=== PATIENT | female | born 1940 | race Caucasian/White ===

== ENCOUNTER 2020-10-23 08:12 | Outpatient (CLI) | payer MEDICARE, OTHER ==
[~2020-10-23 08:12] MED LIST: PHEN-786 PO
[2020-10-23 08:59] LABS: BASOPHILS # (AUTO) 0.1 X10'3 (0-0.2); BASOPHILS % (AUTO) 0.8 % (0-1); EOSINOPHILS # (AUTO) 0.3 X10'3 (0-0.9); EOSINOPHILS % (AUTO) 3.6 % (0-6); HEMATOCRIT 37.1 % (35.0-45.0); HEMOGLOBIN 12.8 g/dl (12.0-16.0); LYMPHOCYTES % (AUTO) 27.3 % (21-51); MEAN CORPUSCULAR HEMOGLOBIN 31.7 PG (27.0-31.0); MEAN CORPUSCULAR HGB CONC 34.5 g/dL (33.0-36.5); MEAN CORPUSCULAR VOLUME 91.8 FL (78-98); MEAN PLATELET VOLUME 8.7 FL (7.4-10.4); MONOCYTES # (AUTO) 0.7 X10'3 (0-0.9); MONOCYTES % (AUTO) 9.2 % (2-12); NEUTROPHILS # (AUTO) 4.3 X10'3 (1.8-7.7); NEUTROPHILS % (AUTO) 59.1 % (42-75); PLATELET COUNT 250 X10'3 (140-440); RED BLOOD COUNT 4.05 X10'6 (4.20-5.60); RED CELL DISTRIBUTION WIDTH 12.8 % (11.5-14.5); WHITE BLOOD COUNT 7.3 X10'3 (4.5-11.0)
[2020-10-23 09:08] LABS: PARTIAL THROMBOPLASTIN TIME 25 SECONDS (22-32)
[2020-10-23 09:09] LABS: ALANINE AMINOTRANSFERASE 23 U/L (12-78); ALBUMIN 3.9 G/DL (3.4-5.0); ALBUMIN/GLOBULIN RATIO 1.1 (1.1-1.5); ALKALINE PHOSPHATASE 81 IU/L (46-116); ANION GAP 7 (8-16); ASPARTATE AMINO TRANSFERASE 37 U/L (10-37); BILIRUBIN,TOTAL 0.5 MG/DL (0.1-1.0); BLOOD UREA NITROGEN 19 MG/DL (7-18); BUN/CREATININE RATIO 18.8 (6.6-38.0); CALCIUM 9.2 MG/DL (8.5-10.1); CHLORIDE 107 MMOL/L (99-107); CREATININE 1.01 MG/DL (0.40-0.90); GLUCOSE 94 MG/DL (70-104); POTASSIUM 4.2 MMOL/L (3.5-5.1); SODIUM 143 MMOL/L (135-145); TOTAL CARBON DIOXIDE 29.2 MMOL/L (24-32); TOTAL PROTEIN 7.4 G/DL (6.4-8.2); eGFR 53 ML/MIN
== END 2020-10-23 23:59 | disposition home or self-care (01) ==
LOC: CARD DIAG 08:12
PROVIDERS: ATTEND Internal Medicine Cardiovascular Disease
DX: I08.0 Rheumatic disorders of both mitral and aortic valves (principal); R06.02 Shortness of breath; I65.29 Occlusion and stenosis of unspecified carotid artery
CPT/HCPCS: 36415; 80053; 85025; 85610; 85730; 93308; 94010; 94727; 94729

== ENCOUNTER 2020-10-26 09:43 | Outpatient (CLI) | payer MEDICARE, OTHER ==
[2020-10-26] MEDS ORDERED: iohexol 350 MG/ML 50ML vial IV ONE (09:48)
[2020-10-26] MEDS ORDERED: iohexol 350MG/ML 100ml bottle IV ONE (09:48)
== END 2020-10-26 23:59 | disposition home or self-care (01) ==
LOC: 64 CT 09:43
PROVIDERS: ATTEND Internal Medicine Cardiovascular Disease
DX: D73.4 Cyst of spleen (principal); M16.12 Unilateral primary osteoarthritis, left hip; I44.7 Left bundle-branch block, unspecified; M47.819 Spondylosis without myelopathy or radiculopathy, site unspecified
CPT/HCPCS: 71046; 71275; 74174; Q9967; 93005; 93308

== ENCOUNTER 2020-11-21 13:21 | Day surgery (SDC) | payer MEDICARE, OTHER ==
[2020-11-21] VITALS (9 sets, daily range): BP systolic 121–142; BP diastolic 45–79
[~2020-11-21] VITALS: Ht 160 cm; Wt 70.6 kg
[2020-11-21] MEDS ORDERED: normal saline 1,000 ML IV SCH (13:40)
[2020-11-21] MEDS ORDERED: LORazepam 0.5 MG tablet PO PRN (13:40)
[2020-11-21] MEDS ORDERED: diphenhydrAMINE 25mg capsule PO PRN (13:40)
[2020-11-21] MEDS ORDERED: MAGN400C PO (14:09)
[2020-11-21] MEDS ORDERED: METO-539 PO (14:09)
[2020-11-21] MEDS ORDERED: OMEP40CA13 PO (14:09)
[2020-11-21] MEDS ORDERED: MULT-227 PO (14:09)
[2020-11-21] MEDS ORDERED: LECI400C2 PO (14:09)
[2020-11-21] MEDS ORDERED: OMEG-79 PO (14:09)
[2020-11-21] MEDS ORDERED: ASCO-321 PO (14:09)
[2020-11-21] MEDS ORDERED: EVOL420W2 SUBCUT (14:09)
[2020-11-21] MEDS ORDERED: BACL10TA PO (14:09)
[2020-11-21] MEDS ORDERED: LEVO50CA4 PO (14:09)
[2020-11-21] MEDS ORDERED: VITA80008 PO (14:09)
[2020-11-21] MEDS ORDERED: MECL-159 PO (14:09)
[2020-11-21] MEDS ORDERED: CHOL500049 PO (14:09)
[2020-11-21] MEDS ORDERED: OXYB5TAB16 PO (14:09)
[2020-11-21] MEDS ORDERED: VITA-268 PO (14:09)
[2020-11-21 14:15] LABS: BASOPHILS # (AUTO) 0.1 X10'3 (0-0.2); BASOPHILS % (AUTO) 0.8 % (0-1); EOSINOPHILS # (AUTO) 0.2 X10'3 (0-0.9); EOSINOPHILS % (AUTO) 2.3 % (0-6); HEMATOCRIT 35.6 % (35.0-45.0); LYMPHOCYTES # (AUTO) 2.2 X10'3 (1.1-4.8); LYMPHOCYTES % (AUTO) 29.5 % (21-51); MEAN CORPUSCULAR HGB CONC 33.8 g/dL (33.0-36.5); MEAN CORPUSCULAR VOLUME 91.6 FL (78-98); MEAN PLATELET VOLUME 8.6 FL (7.4-10.4); MONOCYTES # (AUTO) 0.6 X10'3 (0-0.9); MONOCYTES % (AUTO) 8.3 % (2-12); NEUTROPHILS # (AUTO) 4.4 X10'3 (1.8-7.7); NEUTROPHILS % (AUTO) 59.1 % (42-75); PLATELET COUNT 225 X10'3 (140-440); RED BLOOD COUNT 3.89 X10'6 (4.20-5.60); RED CELL DISTRIBUTION WIDTH 13.2 % (11.5-14.5); WHITE BLOOD COUNT 7.4 X10'3 (4.5-11.0)
[2020-11-21 14:27] LABS: ALBUMIN 3.7 G/DL (3.4-5.0); ANION GAP 11 (8-16); BLOOD UREA NITROGEN 15 MG/DL (7-18); CHLORIDE 105 MMOL/L (99-107); CREATININE 0.94 MG/DL (0.40-0.90); GLUCOSE 96 MG/DL (70-104); SODIUM 142 MMOL/L (135-145); TOTAL CARBON DIOXIDE 26.5 MMOL/L (24-32); eGFR 57 ML/MIN
[2020-11-21] MEDS ORDERED: nitroGLYCERIN-Tridil 50MG/D5W 250 ML IV ONE (14:29)
[2020-11-21] MEDS ORDERED: LIDOcaine 1% (10mg/ml)w/preservative injection 20ml MDV ONE (14:30)
[2020-11-21] MEDS ORDERED: iohexol 350MG/ML 100ml bottle IV ONE (14:30)
[2020-11-21] MEDS ORDERED: verapamil 2.5 mg/ml inj IV ONE (14:30)
[2020-11-21] MEDS ORDERED: midazolam 2 mg/2 ml injection ONE (14:30)
[2020-11-21] MEDS ORDERED: heparin 1,000unit/ml 10ml vial 10 ML ONE (14:30)
[2020-11-21] MEDS ORDERED: fentaNYL/PF 50MCG/1 ML 2ML syringe ONE (14:30)
[2020-11-21] MEDS ORDERED: iohexol 350 MG/ML 50ML vial IV ONE (15:11)
[2020-11-21] MEDS ORDERED: ondansetron/PF 4mg/2ml inj IV PRN (16:20)
[2020-11-21] MEDS ORDERED: HYDROcodone/acetaminophen 10/325mg tab PO PRN (16:20)
[2020-11-21] MEDS ORDERED: HYDROcodone/acetaminophen 5mg/325mg tablet PO PRN (16:20)
[2020-11-21] MEDS ORDERED: proCHLORperazine 10 MG/2 ml inj IV PRN (16:20)
[2020-11-21] MEDS ORDERED: OXAZEpam 15mg capsule PO PRN (16:20)
== END 2020-11-21 18:28 | disposition home or self-care (01) ==
LOC: SSTAY O 13:21
PROVIDERS: ATTEND Internal Medicine Interventional Cardiology
DX: I35.0 Nonrheumatic aortic (valve) stenosis (principal); I25.718 Atherosclerosis of autologous vein coronary artery bypass graft(s) with other forms of angina pectoris; I10 Essential (primary) hypertension; E78.5 Hyperlipidemia, unspecified; E03.9 Hypothyroidism, unspecified; I65.23 Occlusion and stenosis of bilateral carotid arteries; I70.208 Unspecified atherosclerosis of native arteries of extremities, other extremity; Z88.1 Allergy status to other antibiotic agents; Z88.8 Allergy status to other drugs, medicaments and biological substances; Z79.899 Other long term (current) drug therapy; Z79.82 Long term (current) use of aspirin
CPT/HCPCS: 36415; 80048; 85025; 85610; 93005; 93455; 99152; C1769; C1894; J1644; J2001; J2250; J3010; Q9967; A5120; A6258; J3490

== ENCOUNTER 2021-01-04 16:02 | Outpatient (CLI) | payer MEDICARE, OTHER ==
[~2021-01-04] VITALS: Ht 160 cm; Wt 70.6 kg
[~2021-01-04 16:02] MED LIST changes: +ASCO-321 PO; +ASPI-1265 PO; +CHOL500049 PO; +CLOP75TA34 PO; +EVOL420W2 SUBCUT; +FLAX100031 PO; +LECI400C2 PO; +LEVO50CA4 PO; +MAGN400C PO; +METO-539 PO; +NAPR-1170 PO; +OMEP40CA13 PO; +OXYB5TAB16 PO; -PHEN-786 PO; +RESERVATOL PO; +TUMERIC PO; +UBID1CAP54 PO; +VITA-268 PO; +VITA80008 PO; +[UNRECOGNIZED DRUG - OTHER]; +[UNRECOGNIZED DRUG - OTHER] PO
[2021-01-04 17:08] VITALS: BP 173/72
--- NOTE | 2021-01-04 17:09 | NUR ---
Patient was seen today for TAVR follow-up with Dr. Mills and Dr. Villanueva. [facility]. Walk test completed. Vital signs measured. Echo and EKG reviewed with patient along with current condition of patients symptoms.
== END 2021-01-04 23:59 | disposition home or self-care (01) ==
LOC: TAVR 16:02
PROVIDERS: ATTEND Internal Medicine Cardiovascular Disease
DX: Z48.812 Encounter for surgical aftercare following surgery on the circulatory system (principal); Z95.5 Presence of coronary angioplasty implant and graft

== ENCOUNTER 2021-01-26 01:13 | Emergency (ER) | payer MEDICARE, OTHER ==
[~2021-01-26] VITALS: Ht 160 cm; Wt 70.0 kg
[2021-01-26 01:20] VITALS: BP 109/76
[2021-01-26 02:25] LABS: CLARITY,URINE SLIGHTLY CLOUDY (Clear); COLOR,URINE YELLOW (Yellow); GLUCOSE, URINE NEGATIVE (Neg); KETONES,URINE NEGATIVE (Neg); LEUKOCYTE ESTERASE ,URINE MODERATE (Neg); NITRITES, URINE NEGATIVE (Neg); OCCULT BLOOD,URINE LARGE (Neg); PROTEIN,URINE TRACE mg/dl (Neg); UROBILINOGEN,URINE 0.2 E.U/dL (0.2-1.0)
[2021-01-26 02:37] LABS: UA COLLECTION TYPE CLN CATCH MIDSTREAM
[2021-01-26 02:38] LABS: BACTERIA,URINE NONE SEEN /HPF (Neg); MUCUS STRANDS NONE SEEN /LPF (Neg); RBC,URINE 0-2 /HPF (0-2); SQUAMOUS EPITHELIAL CELL,UR FEW /LPF (FEW); WBC,URINE 30-50 /HPF (0-4)
[2021-01-26] MEDS ORDERED: cephalexin 500mg capsule PO ONE (02:45)
[2021-01-26] MEDS ORDERED: phenazopyridine 100mg tablet PO ONE (02:50)
[2021-01-26] MEDS ORDERED: CEPH-585 PO (02:54)
[2021-01-26] MEDS ORDERED: PHEN-824 PO (02:54)
== END 2021-01-26 03:08 | disposition home or self-care (01) ==
LOC: ER 01:15
DX: N39.0 Urinary tract infection, site not specified (principal); R30.9 Painful micturition, unspecified; Z90.710 Acquired absence of both cervix and uterus; Z98.890 Other specified postprocedural states; Z60.2 Problems related to living alone; Z88.8 Allergy status to other drugs, medicaments and biological substances; Z79.82 Long term (current) use of aspirin; Z79.2 Long term (current) use of antibiotics; Z79.899 Other long term (current) drug therapy
CPT/HCPCS: 81001; 87077; 87088; 87186; 99283